=== PATIENT | male | born 1970 | race Caucasian/White ===

== ENCOUNTER 2016-11-05 13:55 | Emergency (ER) | payer OTHER ==
[~2016-11-05 13:55] MED LIST: MEDR4PAK3 PO; MOBI15TA PO
[2016-11-05 14:00] VITALS: BP 143/99; PULSE 74; RESP 20; TEMP 98.4; O2SAT 99
--- NOTE | 2016-11-05 15:33 | PD ---
HPI Chief Complaint: Chest Pain Time Seen by Provider: 15:22 Travel History International Travel<30 days: No Contact w/Intl Traveler<30days: No Traveled to known affect area: No History of Present Illness HPI This 46-year-old male says that he fell yesterday. He landed on a flowerpot hitting in the right side of his chest. He's been having pain at the site since then. Feels little bit short of breath. He did have a little bit of pain in the front of his chest earlier and felt like it was catching there this pain lasted for about a minute. He has no history of heart disease. He does have a history of seizures. 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) Past Surgical History Oral Surgery: Yes (WISDOM TEETH) Social History Alcohol Use: No Tobacco Use: No (QUIT 7 YRS AGO SMOKED 3/4 PACK OF CIGS FOR APPROX 18 YRS) Substance Use: No Allergies-Medications (Allergen,Severity, Reaction): Coded Allergies: No Known Allergies (Verified , 11/05/16) Reported Meds & Prescriptions Reported Meds & Active Scripts Active Medrol Dosepak (Methylprednisolone) 4 Mg Caio 4 Mg PO DIRECTED TAKE DIRECTED Reported Mobic (Meloxicam) 15 Mg Tab 15 Mg PO DAILY Review of Systems General / Constitutional: No: Fever, Chills Eyes: No: Diploplia, Blurred Vision HENT: No: Headaches, Vertigo Cardiovascular: No: Chest Pain or Discomfort, Palpitations Respiratory: Positive: Shortness of Breath, Pleuritic Pain, No: Cough Gastrointestinal: No: Vomiting, Diarrhea Genitourinary: No: Urgency Skin: No Rash, No Itching Physical Exam Narrative GENERAL: Well-developed male SKIN: Focused skin assessment warm/dry. HEAD: Atraumatic. Normocephalic. EYES: Pupils equal and round. No scleral icterus. No injection or drainage. ENT: No nasal bleeding or discharge. Mucous membranes pink and moist. NECK: Trachea midline. No JVD. CARDIOVASCULAR: Regular rate and rhythm. No murmur appreciated. RESPIRATORY: No accessory muscle use. Clear to auscultation. Breath sounds equal bilaterally. There is an ecchymotic area on the lateral aspect of the right chest. Underlying rib cage is quite tender. There is no tenderness over the sternum. GASTROINTESTINAL: Abdomen soft, non-tender, nondistended. Hepatic and splenic margins not palpable. MUSCULOSKELETAL: No obvious deformities. No clubbing. No cyanosis. No edema. NEUROLOGICAL: Awake and alert. No obvious cranial nerve deficits. Motor grossly within normal limits. Normal speech. PSYCHIATRIC: Appropriate mood and affect; insight and judgment normal. Data Data Last Documented VS Vital Signs Date Time Temp Pulse Resp B/P Pulse Ox O2 Delivery O2 Flow Rate FiO2 11/05/16 14:00 98.4 74 20 143/99 99 Orders Chest, Pa & Lat (11/05/16 15:27) [facility] Medical Decision Making Medical Screen Exam Complete: Yes Emergency Medical Condition: Yes Medical Record Reviewed: Yes Differential Diagnosis Differential includes rib fracture, pneumothorax, contusion, Narrative Course Chest x-ray PA and lateral performed. There is no pneumothorax. I do not see any rib fractures though certainly he may have occult rib fractures. Diagnosis Primary Impression: Contusion, chest wall Qualified Code: S20.211A - Contusion, chest wall, right, initial encounter Disposition: DISCHARGE HOME Condition: Stable Darrius Napoles MD Nov 05, 2016 15:32
--- NOTE | 2016-11-05 15:41 | RADRPT ---
EXAM DATE/TIME: 11/05/2016 15:29 [facility] COMPARISON: No previous studies available for comparison. INDICATIONS : Trauma, fall. MEDICAL HISTORY : None. SURGICAL HISTORY : None. ENCOUNTER: Initial ACUITY: 2 days PAIN SCORE: 5/10 LOCATION: Right chest FINDINGS: PA and lateral views of the chest demonstrate the lungs to be symmetrically aerated without evidence of mass, infiltrate or effusion. The cardiomediastinal contours are unremarkable. Osseous structure s are intact. CONCLUSION: 1. No acute cardiopulmonary disease. Davion Castro MD on November 05, 2016 at 15:39 Board Certified Radiologist. This report was verified electronically.
[2016-11-05] MEDS ORDERED: ATOR40TA16 PO (15:48)
--- NOTE | 2016-11-06 19:13 | EKG ---
Date Performed: 11/05/2016 Time Performed: 14:06:03 PTAGE: 46 years EKG: Sinus rhythm NORMAL ECG Compared to the PREVIOUS TRACING 02/08/12, no significant change DOCTOR: Cyril Johnson Interpretating Date/Time 11/06/2016 19:11:19
== END 2016-11-05 16:03 | disposition home or self-care (01) ==
LOC: PHED 13:55
DX: S20.219A Contusion of unspecified front wall of thorax, initial encounter (principal); R06.02 Shortness of breath; W18.30XA Fall on same level, unspecified, initial encounter; Y93.9 Activity, unspecified; Y92.9 Unspecified place or not applicable
CPT/HCPCS: 71020; 93005; 99283